=== PATIENT | female | born 1975 ===

== ENCOUNTER 2018-04-11 23:20 | Emergency (ER) | payer BC ==
[2018-04-11 23:21] VITALS: BMI 35.4
[2018-04-11 23:44] VITALS: O2SAT 100
--- NOTE | 2018-04-12 00:59 | ED PDOC ---
HPI: Hypertension/Hypotension Time Seen by Provider: 04/11/18 23:25 Chief Complaint (Nursing): High Blood Pressure Chief Complaint (Provider): High Blood Pressure History Per: Patient History/Exam Limitations: no limitations Onset/Duration Of Symptoms: Days (x1) Current Symptoms Are (Timing): Still Present Additional History Per: EMS Additional Complaint(s): 42 year old female with a history of hypertension presents to the emergency department via EMS complaining of high blood pressure. Patient states she ran out of her medication yesterday and has not been able to have her rx refilled, prompting her ED visit after feeling hypertensive today with a mild headache. Denies chest pain, shortness of breath, and fever. PMD: none provided Past Medical History Reviewed: Historical Data, Nursing Documentation, Vital Signs Vital Signs: Last Vital Signs Temp 99.1 F 04/11/18 23:22 Pulse 96 H 04/11/18 23:22 Resp 16 04/11/18 23:22 BP 148/78 04/11/18 23:22 Pulse Ox 100 04/11/18 23:22 - Medical History PMH: Anxiety (feeling anxious), Bipolar Disorder, Depression (lack of energy), HTN, Post Traumatic Stress Disorder, Schizophrenia, Seizures (many yrs ago.) Denies: Diabetes, Hepatitis, HIV, Hypothyroidism, Sexually Transmitted Disease - Surgical History Surgical History: No Surg Hx - Family History Family History: States: Unknown Family Hx - Social History Current smoker - smoking cessation education provided: No Alcohol: Occasional Drugs: Cannabis - Immunization History Hx Tetanus Toxoid Vaccination: No Hx Influenza Vaccination: No Hx Pneumococcal Vaccination: No - Home Medications Home Medications: Ambulatory Orders Medication Instructions Recorded Divalproex [Depakote DR] 500 mg PO BID #60 tcp 03/26/18 Haloperidol [Haldol] 5 mg PO BID #60 tab 03/26/18 traZODone [Desyrel] 50 mg PO HS PRN #30 tab 03/26/18 amLODIPine [Norvasc] 5 mg PO DAILY #15 tab 04/02/18 amLODIPine [Norvasc] 5 mg PO DAILY #5 tab 04/12/18 Benztropine [Cogentin] 1 mg PO DAILY #30 tab 04/15/18 Divalproex [Depakote DR] 500 mg PO BID #60 tcp 04/15/18 Haloperidol [Haldol] 5 mg PO BID #60 tab 04/15/18 QUEtiapine [Seroquel] 100 mg PO HS #30 tab 04/15/18 amLODIPine [Norvasc] 5 mg PO DAILY #30 tab 04/15/18 traZODone [Desyrel] 100 mg PO HS PRN #30 tab 04/15/18 - Allergies Allergies/Adverse Reactions: Allergies Allergy/AdvReac Type Severity Reaction Status Date / Time No Known Allergies Allergy Verified 04/12/18 03:32 Review of Systems ROS Statement: Except As Marked, All Systems Reviewed And Found Negative Constitutional: Negative for: Fever Cardiovascular: Positive for: Other (felt hypertensive). Negative for: Chest Pain Respiratory: Negative for: Shortness of Breath Neurological: Positive for: Headache (mild) Physical Exam - Reviewed Nursing Documentation Reviewed: Yes Vital Signs Reviewed: Yes - Physical Exam Appears: Positive for: No Acute Distress Head Exam: Positive for: ATRAUMATIC, NORMOCEPHALIC Skin: Positive for: Normal Color, Warm, Dry Eye Exam: Positive for: Normal appearance ENT: Positive for: Normal ENT Inspection Neck: Positive for: Normal, Painless ROM, Supple Cardiovascular/Chest: Positive for: Regular Rate, Rhythm. Negative for: Murmur Respiratory: Positive for: Normal Breath Sounds. Negative for: Accessory Muscle Use, Respiratory Distress Gastrointestinal/Abdominal: Positive for: Normal Exam, Soft. Negative for: Tenderness Back: Positive for: Normal Inspection. Negative for: L CVA Tenderness, R CVA Tenderness, Vertebral Tenderness Extremity: Positive for: Normal ROM. Negative for: Pedal Edema Neurologic/Psych: Positive for: Alert, Oriented (x3). Negative for: Motor/ Sensory Deficits - ECG ECG: Positive for: Interpreted By Me, Viewed By Me ECG Rhythm: Positive for: Sinus Rhythm (at 88bpm) O2 Sat by Pulse Oximetry: 100 (RA) Pulse Ox Interpretation: Normal Medical Decision Making Medical Decision Making: Initial Impression: hypertension Time: 00:17 Initial Plan: --EKG --Tylenol 650mg PO 01:45 Blood pressure is at 150 systolic. Patient will be discharged with a referral to follow up with her PMD promptly tomorrow for prescription refill. Scribe Attestation: Documented by Elana Pritchard, acting as a scribe for Gerardo Parekh MD. Provider Scribe Attestation: All medical entries made by the Scribe were at my direction and personally dictated by me. I have reviewed the chart and agree that the record accurately reflects my personal performance of the history, physical exam, medical decision making, and the department course for this patient. I have also personally directed, reviewed, and agree with the discharge instructions and disposition. Disposition - Clinical Impression Clinical Impression: Hypertension - Patient ED Disposition Is Patient to be Admitted: No Counseled Patient/Family Regarding: Studies Performed, Diagnosis, Need For Followup - Disposition Referrals: Jalen Cortez MD [Primary Care Provider] - Disposition: Routine/Home Disposition Time: 02:00 Condition: IMPROVED Additional Instructions: follow up with your primary doctor TOMORROW for refills of all your medications including your blood pressure medicines return to the ED with any worsening or concerning symptoms Prescriptions: amLODIPine [Norvasc] 5 mg PO DAILY #5 tab Instructions: High Blood Pressure (DC) Forms: [employer] (Uzbek)
[2018-04-12 01:49] VITALS: BP 152/78; PULSE 88; RESP 18; TEMP 98.8
--- NOTE | 2018-04-13 10:59 | CARD ---
APPROVED REPORT EKG Measurement Heart [id number] <Conclusion> Normal sinus rhythm Minimal voltage criteria for LVH, may be normal variant Nonspecific T wave abnormality Abnormal ECG
== END 2018-04-12 00:40 | disposition home or self-care (01) ==
LOC: H.ER 23:20
DX: I10 Essential (primary) hypertension (principal); F31.9 Bipolar disorder, unspecified; F41.9 Anxiety disorder, unspecified